=== PATIENT | male | born 1965 | race Two or more races ===

== ENCOUNTER 2016-03-31 18:53 | Emergency (ER) | payer MEDICARE, MEDICAID ==
--- NOTE | 2016-03-31 19:48 | ER Document Report ---
ED Medical Screen (RME) - General Stated Complaint: TOOTH PAIN Time seen by provider: 19:47 Mode of Arrival: Ambulatory Information source: Patient Notes: 50 yo male with dental pain and decay lower left side for over a month, worse when biting down since yesterday. Nerve exposed. TRAVEL OUTSIDE OF THE [place] IN LAST 30 DAYS: No Past Medical History Pulmonary Medical History: Reports: Hx COPD Past Surgical History: Reports: Hx Orthopedic Surgery - Immunizations Hx Diphtheria, Pertussis, Tetanus Vaccination: Yes Physical Exam - Vital signs Vitals: Temp Pulse Resp BP Pulse Ox 98.4 F 80 20 167/107 H 98 03/31/16 19:01 03/31/16 19:01 03/31/16 19:01 03/31/16 19:01 03/31/16 19:01 Course - Vital Signs Vital signs: Temp Pulse Resp BP Pulse Ox 98.4 F 80 20 167/107 H 98 03/31/16 19:01 03/31/16 19:01 03/31/16 19:01 03/31/16 19:01 03/31/16 19:01
[2016-03-31] MEDS ORDERED: PENICILLIN V POTASSIUM 500 MG TABLET PO ONE (20:08)
[2016-03-31] MEDS ORDERED: HYDROCODONE/ACETAMINOPHEN 5-325 MG 6 TAB/DSPK PO PRN (20:09)
--- NOTE | 2016-03-31 20:09 | ER Document Report ---
HPI - HPI Patient complains to provider of: dental pain Onset: Other - over a month but yesterday intense pain Onset/Duration: Persistent Quality of pain: Achy, Throbbing Severity: Severe Pain Level: 5 Context: Patient presents to the emergency department for complaints of left lower dental pain for the past month. He reports for the past week it's been hurting more but yesterday he had intense pain. He has been placing dental filling on the tooth but nothing is helping with the pain. He denies other symptoms such as fever vomiting diarrhea. He reports pain when he bites down on the tooth. He does not have insurance he doesn't think. Patient does have Medicare and Medicaid. patient reported he probably had oral surgeon diamond expert to come in and take care of his tooth. Associated Symptoms: None Exacerbated by: Other - touch, eating, biting down on food Relieved by: Denies Similar symptoms previously: No Recently seen / treated by doctor: No - ROS ROS below otherwise negative: Yes - DERM Skin Color: Normal Past Medical History - General Information source: Patient - Social History Smoking Status: Current Every Day Smoker Chew tobacco use (# tins/day): No Frequency of alcohol use: None Drug Abuse: None Family History: Reviewed & Not Pertinent Patient has suicidal ideation: No Patient has homicidal ideation: No Pulmonary Medical History: Reports: Hx COPD Neurological Medical History: Reports: Hx Seizures Past Surgical History: Reports: Hx Orthopedic Surgery - Immunizations Hx Diphtheria, Pertussis, Tetanus Vaccination: Yes Vertical Provider Document - CONSTITUTIONAL Agree With Documented VS: Yes Exam Limitations: No Limitations General Appearance: WD/WN, Mild Distress - winces when tooth palpated - INFECTION CONTROL TRAVEL OUTSIDE OF THE [place] IN LAST 30 DAYS: No - HEENT HEENT: Atraumatic, Normocephalic. negative: Pharyngeal Erythema Mouth Diagram: 1 - c/o pain, no swelling, no erythema, no pustule, opens mouth wide, clear voice, no ludwigs - RESPIRATORY O2 Sat by Pulse Oximetry: 98 Course - Re-evaluation Re-evalutation: 03/31/16 Patient provided with written resources information for dentist. Patient was instructed on medications importance of follow dentist for treatment. - Vital Signs Vital signs: Temp Pulse Resp BP Pulse Ox 98.4 F 80 20 167/107 H 98 03/31/16 19:01 03/31/16 19:01 03/31/16 19:01 03/31/16 19:01 03/31/16 19:01 Discharge - Discharge Clinical Impression: Pain, dental, elevated blood pressure Condition: Stable Disposition: HOME, SELF-CARE Instructions: Oral Narcotic Medication ([facility]), Toothache ([facility]), Penicillin V K ( [facility]) Additional Instructions: *You have been evaluated for dental pain *Monitor your blood pressure. Your blood pressure was elevated today. This may be because you were anxious, in pain or because you need medication. It is important to follow up with your primary care provider for full evaluation. *Take medications as prescribed *Follow up with a dentist this week *Return to ED for worsening condition, changes, needs Prescriptions: Penicillin V Potassium [Penicillin Vk 500 mg Tablet] 500 mg PO BID #20 tablet Forms: Elevated Blood Pressure
[2016-03-31 20:51] VITALS: BP 147/99
== END 2016-03-31 20:51 | disposition home or self-care (01) ==
LOC: ER 18:53
DX: K08.89 Other specified disorders of teeth and supporting structures (principal); F17.200 Nicotine dependence, unspecified, uncomplicated; J44.9 Chronic obstructive pulmonary disease, unspecified; I10 Essential (primary) hypertension
CPT/HCPCS: 99282; A9270 ×2